=== PATIENT | female | born 1955 | race Caucasian/White ===

== ENCOUNTER 2024-12-31 15:15 | Outpatient (REF) | payer BC, SELFPAY ==
--- OUTSIDE RECORDS SUMMARY | 2024-12-31 16:13 | XMS_ITS | Clinical Summary ---
Author Organization [facility] Address [address] [employer] [facility] [address] [place] [phone] Phone Care Team Providers Care Ore Washer Name Role Phone Self-Referred, Patient Unavailable Unavailab Megan Fermin MD Unavailable Danae Walker MD Primary Care Provide r Salvador Garduno MD Unavailable Allergies Active Allergy Reactions Criticality Noted Date Comments Amoxicillin Rash Low 01/19/2017 Cefoxitin Anaphylaxis High 01/19/2017 Codeine Itching 01/19/2017 Lisinopril 11/13/2022 cough Losartan 11/13/2022 cough/ hoarseness Ragweed Pollen 08/01/2022 Rosuvastatin 11/13/2022 myalgias Valsartan Cough 11/20/2024 Medications cetirizine (ZYRTEC) 10 MG tablet Take 10 mg by mouth as needed. Active cholecalcifero l (VITAMIN D3) 2,000 unit tablet Take 2,000 Units by mouth daily. Active ALBUTEROL INHL Inhale into the lungs as needed. Active fluticasone propionate (FLONASE) 50 mcg/actuation nasal spray by Nasal route as needed. 03/02/20 21 Active lamoTRIgine (LAMICTAL) 25 MG IMMEDIATE release tablet Take 50 mg by mouth 2 (two) times a day. 70mg at night 07/25/19 23 Active triamcinolone acetonide 0.1 % ointment APPLY TO AFFECTED AREA ON BODY TWICE A DAY X 2 WEEKS OR LESS THEN NEEDED 06/21/19 23 Active ALPHA LIPOIC ACID ORAL Take 600 mg by mouth daily. Active lancets MiscIndication s:Type 1 diabetes mellitus with diabetic neuropathy To use with accu-chek guide meter, test 8x daily 800 each 3 02/15/20 23 Active OMNIPOD 5 G6 PODS, GEN 5, CrtgIndication s:Type 1 diabetes mellitus with diabetic neuropathy Inject 1 each under the skin every other day. Changes pods every 2-3 days 40 each 3 12/05/19 24 Active ammonium lactate (AMLACTIN) 12 % cream Apply topically as needed for dry skin. Active blood-glucose sensor (FREESTYLE MEREDITH 3 PLUS SENSOR) DeviIndication s:Type 1 diabetes mellitus with peripheral neuropathy Use as directed to monitor glucose, change every 15 days 6 each 3 03/05/20 24 Active insulin pump cart,auto,BT,G 6/L (OMNIPOD 5, G6/MEREDITH 2 PLUS,) CrtgIndication s:Type 1 diabetes mellitus with peripheral neuropathy Inject 1 Device under the skin every 3 (three) days. Use to administer insulin, change every 3 days 30 each 3 03/05/20 24 Active blood-glucose meter (ONETOUCH VERIO FLEX START) kitIndications :Type 1 diabetes mellitus with diabetic neuropathy Use as instructed to monitor glucose 1 kit 04/29/20 24 Active amLODIPine (NORVASC) 10 MG tabletIndicati ons:Type 1 diabetes mellitus with peripheral neuropathy Take 1 tablet by mouth every morning. 02/28/20 24 Active OMNIPOD 5 G6-G7 PODS, GEN 5, CrtgIndication s:Type 1 diabetes mellitus with peripheral neuropathy CHANGE POD EVERY 2 TO 3 DAYS 04/13/20 24 Active blood sugar diagnostic (ACCU-CHEK GUIDE TEST STRIPS) Strp stripsIndicati ons:Type 1 diabetes mellitus with peripheral neuropathy USE DIRECTED TO TEST GLUCOSE 6 TIMES DAILY, dx E10.40 600 strip 3 08/21/19 25 Active gabapentin (NEURONTIN) 100 MG capsuleIndicat ions:Type 1 diabetes mellitus with peripheral neuropathy Take 1-3 tablets orally, once daily at night, or as directed 270 capsule 3 08/21/19 25 Active insulin degludec U-100 (TRESIBA U-100 INSULIN) injection vialIndication s:Type 1 diabetes mellitus with peripheral neuropathy Use as directed, 6-7 units, q24 hrs, prn pump failure 10 mL 1 08/21/19 25 Active pantoprazole (PROTONIX) 40 MG tablet Take 1 tablet by mouth every morning. 09/14/19 25 Active albuterol 90 mcg/actuation inhaler inhale 2 puffs every 6 hours as needed for wheezing or shortness of breath 09/14/19 25 Active estradioL (ESTRACE) 0.01 % (0.1 mg/gram) vaginal cream Place 0.5 g vaginally 2 (two) times a week. 42.5 g 3 10/10/19 25 Active insulin aspart U-100 (NOVOLOG) 100 unit/mL injection vialIndication s:Type 1 diabetes mellitus with peripheral neuropathy,Ins ulin pump in place Use as directed via insulin pump, up to 55 units daily 50 mL 3 11/21/19 25 Active blood-glucose sensor (FREESTYLE MEREDITH 3 PLUS SENSOR) DeviIndication s:Type 1 diabetes mellitus with diabetic neuropathy USE DIRECTED TO MONITOR GLUCOSE, CHANGE EVERY 14 DAYS 2 each 1 12/12/19 25 Active insulin pump cart,auto,BT,G 6/L (OMNIPOD 5, G6/MEREDITH 2 PLUS,) CrtgIndication s:Type 1 diabetes mellitus with peripheral neuropathy Inject 1 Units under the skin every 3 (three) days. 30 each 3 12/12/19 25 Active FREESTYLE MEREDITH 2 PLUS SENSOR DeviIndication s:Type 1 diabetes mellitus with peripheral neuropathy Use to monitor glucose, change q15 days 6 each 3 12/12/19 25 Active blood-glucose sensor (FREESTYLE MEREDITH 3 SENSOR) DeviIndication s:Type 1 diabetes mellitus with diabetic neuropathy Use as directed to monitor glucose, change every 14 days 6 each 3 12/05/19 24 025 Discontinued Active Problems Problem Noted Date Diagnosed Date LLQ pain 10/08/2024 Overview (10/08/2024): Suspect either constipation or musculoskeletal origin to the pain, will check ultrasound as a precaution, had normal imaging in 2021 when the pain was present Low libido 10/08/2024 Assessment & Plan (10/08/2024 3:31 PM EDT): Stopped HRT about 11 to 12 years ago, libido declined over the past 5 or 6 years and is now absent. Recommend returning office to focus more on this particular symptom as it was not enough time today Vulvar irritation 10/08/2024 Overview (10/08/2024): Exam benign, no rash or dermatitis, changes consistent with lack of estrogen Assessment & Plan (10/08/2024 3:30 PM EDT): Recommend using estrogen cream, apply both to just inside the introitus and the vulva with fingertip twice weekly and use an emollient once or twice a day Osteopenia 02/14/2023 02/14/2023 Seasonal allergic rhinitis 02/14/202302/14 De Quervain's disease (tenosynovitis) 11/13/2022 11/13/2022 Hypertension 11/13/2022 11/13/2022 Assessment & Plan (11/20/2024 5:02 PM EDT): Managed by PCP, has been reasonably well controlled. Has not tolerated ARB/michael-inhibitors. Assessment & Plan (08/20/2024 2:18 PM EDT): Managed by PCP, has been well controlled, running high today, was hypoglycemic @ visit, has follow up coming up with PCP. Assessment & Plan (05/21/2024 3:14 PM EST): Managed by PCP, has been well controlled, running high today, ? Related to recent illness. Assessment & Plan (03/05/2024 4:58 PM EDT): Managed by PCP, well controlled. Assessment & Plan (08/17/2023 2:27 PM EDT): Managed by PCP, well controlled. Assessment & Plan (05/18/2023 2:31 PM EST): Managed by PCP, well controlled. Insulin pump in place 08/01/2022 Assessment & Plan (11/13/2022 2:52 PM EDT): omnipod 5 & dexcom 6, supplies via local pharmacy Acid reflux 08/01/2022 Carotid stenosis, bilateral 08/01/2022 Status post oophorectomy 01/23/2017 Pelvic mass 01/14/2017 Type 1 diabetes mellitus with peripheral neuropa thy Assessment & Plan (11/20/2024 5:04 PM EDT): Control reasonable, improved based on CGM download/hba1c. No frequent or severe hypoglycemia. Some lows overnight, lowered basal from 3-6 am by 0.05 units/hr. Will check into whether we can shift to sensor-augmented pump therapy, may need to shift to different CGM. Continue to work on eating healthy & keeping active. To call or send in BG with problems with glycemic control. Assessment & Plan (08/20/2024 2:20 PM EDT): Control reasonable, improved based on CGM download. No frequent or severe hypoglycemia. Some lows, discussed some potential insulin adjustments before/after exercise. If ongoing lows after evening meal, can adjust carb ratio from 11 to 12 or 13 to lower bolus w/ evening meal. Continue to work on eating healthy & keeping active. To call or send in BG with problems with glycemic control. Assessment & Plan (05/21/2024 3:16 PM EST): Control reasonable. No severe hypoglycemia. Some recent lows as had increased insulin when ill & starting to feel better. Has been lowering doses back to previous. Highs are often related to lows so will see how they do as lows improve. Will do labs. To call if hasn't heard from us within 1-2 weeks. Continue to work on eating healthy & keeping active. To call or send in BG with problems with glycemic control. Assessment & Plan (03/05/2024 5:02 PM EDT): Control reasonable. No severe hypoglycemia. Tending to go up after breakfast & down in the afternoon, evening. Adjusted carb ratio @ breakfast/dinner & afternoon basal accordingly (see instructions). Need to connect pump to us, she will check her password @ home & MA will contact her to see if we can connect. Will do labs. To call if hasn't heard from us within 1-2 weeks. Continue to work on eating healthy & keeping active. To call or send in BG with problems with glycemic control. Assessment & Plan (12/05/2023 5:50 PM EDT): Control reasonable. No severe hypoglycemia. Tending to drift down late eveniing/overnight. Advised her to cut back on basal rates slightly. Otherwise, no pattern to BG readings to guide rx adjustment. Needs to contact [employer] for help with connecting to our office as we cannot download pump. Will do labs. To call if hasn't heard from us within 1-2 weeks. Continue to work on eating healthy & keeping active. To call or send in BG with problems with glycemic control. Assessment & Plan (08/17/2023 2:30 PM EDT): Control reasonable, not optimal. No severe hypoglycemia. Tending to drift down prior to meals/overnight. Advised her to cut back on basal rates slightly.No pattern to BG readings to guide rx adjustment. Needs to contact [employer] for help with connecting to our office as we cannot download pump. Will do labs soon. To call if hasn't heard from us within 1-2 weeks. Continue to work on eating healthy & keeping active. To call or send in BG with problems with glycemic control. Assessment & Plan (05/18/2023 2:33 PM EST): Control somewhat erratic, had been ill w/ covid & then wasn't as careful w/ diet over the holidays. No frequent or severe hypoglycemia. No pattern to BG readings to guide rx adjustment. Will continue current for now. If readings do not settle down over the next few weeks, let me know & we can download & review. Will do labs. To call if hasn't heard from us within 1-2 weeks. Continue to work on eating healthy & keeping active. To call or send in BG with problems with glycemic control. Assessment & Plan (02/14/2023 12:37 PM EDT): Control reasonable. No frequent or severe hypoglycemia. No pattern to BG readings to guide rx adjustment. Finding dexcom inaccurate, will have PA done for meredith 3. Will be shifting to medicare, discussed potential changes in how rx will be handled & need for fasting [id number]. Continue to work on eating healthy & keeping active. To call or send in BG with problems with glycemic control. Foot & nail care good. Assessment & Plan (11/13/2022 2:58 PM EDT): Control reasonable based on CGM download. No frequent or severe hypoglycemia, but is tending to drift down mid-late afternoon, advised to lower afternoon basal accordingly from 0.45 to 0.40 from noon-6 pm. Continue to work on eating healthy & keeping active. To call or send in BG with problems with glycemic control. Will do labs later in the month. To call if hasn't heard from us within 1-2 weeks. Up to date with ophtho. BP under reasonable control. Not interested in using automode. Considering shifting to meredith 3. Did discuss that is not currently covered with medicare (which she is not currently on). Will call for recent note from RN/CDE. Assessment & Plan (08/01/2022 2:21 PM EDT): Control reasonable, not optimal. No severe hypoglycemia, but having some mild hypoglycemia almost daily. She feels that this is making it hard for her to lose weight. No pattern to BG readings to guide rx adjustment. Reviewed differences between fingersticks & CGM & delay between the two & importance of not over- treating highs or lows as a result of the delay. Discussed need to pay attention to amount of insulin on board, planned activity & potential delay between CGM/ & fngerstick when deciding on eating more or correcting with insulin. May also base decisions on whether she is by herself or with someone as well as planned activity (e.g. about to drive). Discussed role of automode - would advise she consider at least trialing it to see if it helps her improve control & if doesn't ultimately want to use, ? Can she still link the CGM & pump. Continue to work on eating healthy & keeping active. To call or send in BG with problems with glycemic control. Up to date with ophtho. May start to see podiatry. Will do labs soon. To call if hasn't heard from us within 1-2 weeks. BP under reasonable control. Type 1 diabetes mellitus with retinopathy Assessment & Plan (11/20/2024 10:40 AM EDT): Up to date w/ ophtho. Assessment & Plan (08/20/2024 2:20 PM EDT): Up to date w/ ophtho. Assessment & Plan (05/21/2024 3:14 PM EST): Up to date w/ ophtho. Assessment & Plan (03/05/2024 4:59 PM EDT): Up to date w/ ophtho. Assessment & Plan (12/05/2023 5:51 PM EDT): Up to date w/ ophtho. Assessment & Plan (08/17/2023 2:28 PM EDT): Up to date w/ ophtho. Assessment & Plan (05/18/2023 2:31 PM EST): Scheduled w/ ophtho. Assessment & Plan (02/14/2023 12:38 PM EDT): Little overdue for exam, shifting ophtho d/t previous provider retiring. Type 1 diabetes mellitus with microalbuminuria Assessment & Plan (11/20/2024 5:05 PM EDT): Umalb/creat mildly elevated, stable. Intolerant michael-inhibitor/ARB. BP ok today. Will continue to monitor. Assessment & Plan (08/20/2024 2:18 PM EDT): Umalb/creat mildly elevated, stable. Intolerant michael-inhibitor/ARB. Will continue to monitor. Assessment & Plan (05/21/2024 3:14 PM EST): Umalb/creat mildly elevated. Will continue to monitor. Intolerant michael- inhibitor/ARB. Assessment & Plan (03/05/2024 4:59 PM EDT): Umalb/creat mildly elevated. Will repeat. BP well controlled. Intolerant michael-inhibitor/ARB. Assessment & Plan (12/05/2023 5:51 PM EDT): Umalb/creat mildly elevated last summer. Will repeat. Assessment & Plan (08/17/2023 2:27 PM EDT): Umalb/creat mildly elevated in December. Will continue to monitor. Assessment & Plan (05/18/2023 2:32 PM EST): Umalb/creat mildly elevated in December. Will continue to monitor. Assessment & Plan (02/14/2023 12:39 PM EDT): Umalb/creat high in December, ? If this is new finding or ongoing? BP under reasonable control, on amlodipine. 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 08/01/2022 02/14/2023 Encounters Date Type Department Care Team Description 12/11/2024 Orders Only [facility] [address] [place] [address] [place] [address] Megan Nguyen MD Type 1 diabetes mellitus with peripheral neuropathy (Primary Dx) 12/10/2024 Refill [facility] [place] [address] Megan Nguyen MD Medication Refill 12/03/2024 [place]phone [facility] [place] [address] Megan Nguyen MD Medication Question 11/20/2024 10:20 AM EDT Office Visit [facility] [place] [address] Megan Nguyen MD Type 1 diabetes mellitus with retinopathy, macular edema presence unspecified, unspecified laterality, unspecified retinopathy severity (Primary Dx); Type 1 diabetes mellitus with peripheral neuropathy; Insulin pump in place; Type 1 diabetes mellitus with microalbuminuria; Primary hypertension 11/17/2024 Orders Only [facility] [address] [place] [address] Gabby Quintero MA Type 1 diabetes mellitus with microalbuminuria 10/08/2024 2:50 PM EDT Office Visit [facility] [address] [place] [address] Felicity Conrad MD LLQ pain (Primary Dx); Low libido; Vulvar irritation from Last 3 Months Family History Medical History Relation Comments No Known Problems Daughter uterus rupture d during child Cardiovascular disease Father Lupus Father Alcohol abuse Mother Breast cancer Mother Diabetes mellitus Mother Breast cancer Sibling Carotid stenosis Sibling Diabetes mellitus Sibling Hypertension Sibling Thyroid cancer Sibling Relation Status Comments Daughter Alive Father Mother Sibling Social History Tobacco Use Types Packs/Day Years Used Date Smoking Tobacco: Never Passive Smoke Exposure: Never Smokeless Tobacco: Never Tobacco Cessation:Counseling Given: Not Answered Alcohol Use Standard Drinks/Week Comments Yes 1 (1 standard drink = 0.6 oz pur e alcohol) rarely Education Answer Date Recorded Are you interested in more education? Not on ren e 09/07/2022 Are you concerned about learning? Not on file 09/07/2022 No 09/07/2022 No 09/07/2022 Digital Access Answer Date Recorded No 10/03/2022 No 10/03/2022 Reliable internet access at home? Not on file 10/03/2022 Device with a working camera? Not on file Comments No Sex and Gender Information Value Date Recorded Sex Assigned at Not on file Legal Sex Female 12:13 PM EDT Gender Identity Not on file Sexual Orientation Not on file Last Filed Vital Signs Vital Sign Reading Time Taken Comments Blood Pressure 135/58 11/20/2024 10:04 AM EDT Pulse 68 11/20/2024 10:04 AM EDT Temperature 36.9 C (98.4 F) 11/13/2022 1:00 PM EDT Respiratory Rate 18 02/12/2017 12:31 PM EDT Oxygen Saturation 98% 11/20/2024 10:04 AM EDT Inhaled Oxygen Concentration - - Weight 58.3 kg (128 lb 9.6 oz) 11/20/2024 10:04 AM EDT Height 159 cm (5' 2.6 ) 05/21/2024 10:39 AM EST Body Mass Index 23.07 05/21/2024 10:39 AM EST Plan of Treatment Upcoming Encounters Date Type Department Care Team (Late st Contact Info) Description 03/05/2025 10:40 AM EDT Office Visit [facility] [address] [place] [address] Megan Nguyen MD [address] [place] [id number] 05/21/2025 10:00 AM EST Office Visit [facility] [address] [place] [address] Megan Nguyen MD [address] [place] [id number] 08/20/2025 10:20 AM EDT Office Visit [facility] [address] [place] [address] Megan Nguyen MD [address] [place] [phone] 11/20/2025 8:20 AM EDT Office Visit [facility] [address] [place] [address] Megan Nguyen MD [address] [place] [phone] Health Maintenance Due Date Last Done Comments DEPRESSION SCREENING 1967 HEPATITIS C SCREENING 11/27/1973 LIPID PANEL 11/27/1973 MAMMOGRAM 1995 COLOGUARD 11/27/2000 COLONOSCOPY 11/27/2000 COLORECTAL CANCER SCREENING 11/27/2000 FIT TEST 11/27/2000 FOBT 11/27/2000 SIGMOIDOSCOPY 11/27/2000 VIRTUAL COLONOSCOPY 11/27/2000 DIABETIC EYE EXAM 01/23/2017 OSTEOPOROSIS SCREENING INITIAL (ONE-TIME) 11/27/2020 COVID-19 VACCINE ( season) 2024 01/21/2024, 02/06/2023, 10/10/2022, Additional history exists HEMOGLOBIN A1C 09/03/2024 03/05/2024, 0708/2023, 12/18/2022, Additional history exists ZOSTER VACCINES (2 of 2) 10/13/2024 08/18/2024 URINE MICROALBUMIN/CREATININE RATIO 03/05/2025 03/05/2024, 12/05/2023, 12/18/2022 BLOOD PRESSURE 05/23/2025 11/20/2024 Adult Td,Tdap Booster 09/06/2031 09/05/2021 , 08/22/2012, 01/19/2006 PNEUMOCOCCAL VACCINES (50+ years) Completed 06/28/2022, 02/07/2007 RSV VACCINE Completed 03/05/2023 SMOKING STATUS SCREENING (Once After 26 Yrs) Completed 10/08/2024 HEPATITIS A VACCINES Aged Out No long er eligible based on patient's age to complete this topic HIB VACCINES Aged Out No longer eligi ble based on patient's age to complete this topic MENINGOCOCCAL VACCINES (ACWY) Aged Out No longer eligible based on patient's age to complete this topic MENINGOCOCCAL VACCINES (B) Aged Out N o longer eligible based on patient's age to complete this topic Medical Devices Not on file Procedures Procedure Name Priority Date/Time Associated Diagnosis Comments HEMOGLOBIN A1C Routine 11/14/2024 2:42 PM EDT Type 1 diabetes mellitus with microalbuminuria ASPARTATE AMINOTRANSFERASE (AST) Routine 11/14/2024 2:42 PM EDT Type 1 diabetes mellitus with microalbuminuria ALANINE AMINOTRANSFERASE (ALT) Routine 11/14/2024 2:42 PM EDT Type 1 diabetes mellitus with microalbuminuria BASIC METABOLIC PANEL Routine 11/14/2024 2:41 PM EDT Type 1 diabetes mellitus with microalbuminuria MICROALBUMIN/CREATININE RATIO, RANDOM URINE Routine 03/05/2024 11:09 AM EDT Type 1 diabetes mellitus with diabetic neuropathy HEMOGLOBIN A1C Routine 03/05/2024 11:09 AM EDT Type 1 diabetes mellitus with diabetic neuropathy from Last 3 Months or Most Recently Relevant to Health Maintenance Results * Hemoglobin A1c (11/14/2024 2:42 PM EDT) Only the most recent of2 resultswithin the time period is included. Blood Result [facility] us Megan Nguyen MD LAB BLOOD ORDERABLES F inal Result Performing Organization Address [facility] Co de Phone Number [address] [phone] * Aspartate aminotransferase (AST) (11/14/2024 2:42 PM EDT) Blood Result Laura Nguyen MD LAB BLOOD ORDERABLES F inal Result Performing Organization Address [facility] Co de Phone Number [address] [address] * Alanine aminotransferase (ALT) (11/14/2024 2:42 PM EDT) Blood us Megan Nguyen MD LAB BLOOD ORDERABLES F inal Result Performing Organization Address [facility] Co de Phone Number [address] [address] * Basic metabolic panel (11/14/2024 2:41 PM EDT) Blood us Megan Nguyen MD LAB BLOOD ORDERABLES F inal Result [address] [address] * (ABNORMAL) Microalbumin/creatinine ratio, random urine (03/05/2024 11:09 AM EDT) URINE MICROALBUMIN 6.1(H) 0 - 2.3 mg/dL [facility] URINE CREATININE 40 mg/dL [facility] MICROALB/CRE RATIO 152.5(H) 0 - 20 mg/g Cre [facility] Urine (Urine) 03/05/2024 11: 09 AM EDT 03/05/2024 11:23 AM EDT Megan Nguyen MD URINE ORDERABLES Final Result Performing Organization Address City/[facility]/ZIP Co de Phone Number [address] [address] from Last 3 Months or Most Recently Relevant to Health Maintenance Insurance [facility] MEDICARE PPO BLUE REPLACEMENT [facility] MEDICARE PPO BLUE [address] [address] [place] [address] MEDICARE PPO BLUE REPLACEMENT [place] MEDICARE PPO BLUE REPLACEMENT Advance Directives For more information, please contact: [phone] (9AM - 5PM [facility], Sunday-Sunday) * Full Code (Presumed) (Latest Code Status on File) Date Activated Date Inactivated Comments 01/23/2017 4:01 PM 01/29/2017 5:01 PM Care Teams Ore Washer Relationship Specialty Start Date End Date Danae Walker MD [address] [place] [id number] PCP - General Internal Medicine 08/01/22 Self-Referred, Patient Referring Physician 12/26/16 Megan Nguyen MD [address] [place] [id number] [email or web address] Endocrinology 01/23/17 Salvador Garduno MD [address] [place] [address] [address] [place] [id number] Psychiatry 03/05/24 Additional Source Comments The information contained in this document represents components of the legal health record. It is not the complete legal health record.[facility]
--- OUTSIDE RECORDS SUMMARY | 2024-12-31 16:14 | XMS_ITS | Clinical Summary ---
Author Organization [facility] Address [address] [address] Phone Care Team Providers Care Firmware Test Engineer Name Role Phone Danae Walker MD Primary Care Provider [phone] Social History Tobacco Use Types Packs/Day Years Used Date Smoking Tobacco: Never Assessed Comments Unknown Sex and Gender Information Value Date Recorded Sex Assigned at Not on file Legal Sex Female 10:27 AM EDT Gender Identity Not on file Sexual Orientation Not on file Plan of Treatment Upcoming Encounters Date Type Department Care Team (Late st Contact Info) Description 01/21/2025 10:30 AM EDT Office Visit [facility] [address] [phone] Fermin Thayer MD [address] [phone] Health Maintenance Due Date Last Done Comments Breast Cancer Screening 1955 Colorectal Cancer Screening: Annual FOBT 11/27/2004 Colorectal Cancer Screening: Colonoscopy 11/27/2004 Colorectal Cancer Screening: Sigmoidoscopy 11/27/2004 Pneumococcal Vaccine: 50+ Years (2 of 2 - PCV) 02/08/2008 02/07/2007 Diabetes: Hemoglobin A1C 12/24/2024 Diabetes: Ophthalmology Exam 12/24/2024 Diabetes: Pedal Pulse Checked 12/24/2024 Diabetes: Sensory Foot Exam 12/24/2024 Diabetes: Visual Foot Exam 12/24/2024 Influenza Vaccine (#1) 2025 2, 03/01/2011, 02/12/2008, Additional history exists Hepatitis B Vaccine Aged Out No longe r eligible based on patient's age to complete this topic Insurance [facility] Care Teams Firmware Test Engineer Relationship Specialty Start Date End Date Danae Walker MD [address] [place] [address] PCP - General Internal Medicine 12/22/24
--- OUTSIDE RECORDS SUMMARY | 2024-12-31 16:14 | XMS_ITS | Patient Health Record ---
Author Organization [facility] Address [address] [place] [address] Care Team Providers Care Psych Np Name Role Phone Keeley Wakefield Primary Care Provider Ruiz Belcher Unavailable [phone] Allergies Allergen (clinical drug ingredient) Drug/Non Drug Allergy documented on EMR Reaction Allergy Type Onset Date Status cefoxitin Cefoxitin throat swells Drug Allergy Act cami Penicillin throat swells Drug Allergy Ac tive codeine Codeine skin itches Drug Allergy Activ e injectable steriods high blood pressure Drug Allergy Active Reason For Referral No Information Medications Medication SIG (Take, Route, Frequency, Duration) Notes Start Date End Date Status Insulin Pump [id number] Active Insulin Pump Syringe Galateo Active ZyrTEC Active flonase Active Lisinopril 5 MG 1 tablet Orally Once a day 016 Active LaMICtal 25 MG 3 tablets Orally Twi ce a day 07/14/2015 Active aspirin baby 07/14/2015 Active Social History Tobacco use other than smoking: Question Answer Notes Are you an other tobacco user? No Section Notes: A1C 8 Flu Shot 2014 Pneumonia Shot 3 years ago Eye Exam 12/2014 Problems Problem Type SNOMED Code ICD Code Onset Dates Problem Status W/U Status Risk Notes Problem Polyneuropathy due to diabetes mellitus type I (176469930) Type 1 diabetes mellitus with diabetic polyneuropathy (E10.42) Active confirmed Plan Of Treatment Pending Test Test Name Order Date [id number] Plate 07/14/2015 Insurance Providers Payer Name Payer Address Payer Phone Subscriber Number Group Number Insured Name Patient Relationship to Insured Coverage Start Date Coverage End Date [employer] [address] [place] [address] [id number] Mary Velasquez Self - patient is the insured Medical (General) History Medical History History ICD Code Arthritis Chicken pox Depression Diabetes mellitus Knee Pain Neuropathy Reflux Sinus conditions Hypertension Surgical History Surgery Date(Month/Year) carpal tunnel surgery trigger finger release appendectomy cataract surgery section knee surgery Bone Spurs removed from shoulder breast surgery 2 benign masses removed wisdom teeth extraction
[2024-12-31 18:11] LABS: Anion Gap 12 (12-20); Blood Urea Nitrogen 17 mg/dL (9-16); Calcium 9.1 mg/dL (8.4-10.2); Carbon Dioxide 30 mmol/L (22-29); Chloride 97 mmol/L (96-108); Estimated Glomerular Filt Rate > 60; Potassium 4.5 mmol/L (3.3-5.1); Sodium 134 mmol/L (135-145)
== END 2024-12-31 15:16 | disposition home or self-care (01) ==
LOC: HO.WFDLDS 15:15
PROVIDERS: Referring Provider Psychiatry & Neurology Psychiatry; Visit Provider Internal Medicine
DX: Z79.899 Other long term (current) drug therapy (principal); E87.1 Hypo-osmolality and hyponatremia; I10 Essential (primary) hypertension
CPT/HCPCS: 36415; 80048